=== PATIENT | male | born 1980 | race Caucasian/White ===

== ENCOUNTER 2018-02-13 15:27 | Emergency (ER) | payer OTHER ==
[2018-02-13] MEDS ORDERED: TETANUS & DIPHTHERIA TOX,ADULT 0.5 ML VIAL ONE (16:24)
[2018-02-13] MEDS ORDERED: FLUORESCEIN SODIUM 0.6 MG/WRAP ONE (16:24)
[2018-02-13] MEDS ORDERED: TETRACAINE HCL 0.5% 2ML OPTH ONE (16:24)
--- NOTE | 2018-02-13 17:11 | EDPHYS ---
Physician Documentation [facility] Name: Mahesh Hernandez Age: 37 yrs Sex: Male : 1980 Arrival Date: 02/13/2018 Time: 15:40 Bed 20 Private MD: ED Physician Herb Washington HPI: 02/13 17:00 This 37 yrs old Male presents to ER via Ambulatory with complaints of Foreign pm1 Body Sensation In Left Eye. 17:00 The patient is experiencing foreign body sensation, to the left eye, caused by debris. pm1 Onset: The symptoms/episode began/occurred today. Duration: the symptoms are intermittent. Aggravated by nothing. Alleviated by eye flush. Associated signs and symptoms: Pertinent positives: None. Pertinent negatives: None. Patient wears glasses. Severity of symptoms: in the emergency department the symptoms have improved. The patient has not experienced similar symptoms in the past. The patient has not recently seen a physician. Patient working under his car and some debris fell into his left eye. Patient flushed his eye with water prior to arrival and it improved his symptoms. Patient with history of right eye injury due to chemical splash. Right eye without any pain or sensation of foreign body. Historical: - Allergies: 16:07 Morphine; aj1 16:07 Demerol; aj1 - Home Meds: 16:07 Omeprazole Oral [Active]; aj1 - PMHx: 16:07 GERD; aj1 - PSHx: 16:07 None; aj1 - Immunization history:: Flu vaccine is not up to date. - Social history:: Smoking status: Patient/guardian denies using tobacco. - Ebola Screening: : Patient denies travel to an Ebola-affected area in the 21 days before illness onset. ROS: 17:00 Constitutional: Negative for fever, chills, and weight loss. pm1 17:00 ENT: Negative for injury, pain, and discharge, Neck: Negative for injury, pain, and swelling, Cardiovascular: Negative for chest pain, palpitations, and edema, Respiratory: Negative for shortness of breath, cough, wheezing, and pleuritic chest pain, Abdomen/GI: Negative for abdominal pain, nausea, vomiting, diarrhea, and constipation, Back: Negative for injury and pain, MS/Extremity: Negative for injury and deformity, Skin: Negative for injury, rash, and discoloration, Neuro: Negative for headache, weakness, numbness, tingling, and seizure. 17:00 Eyes: Positive for foreign body sensation, of the left eye, Negative for blurry vision, discharge. Exam: 17:30 Visual Acuity: I have reviewed the nursing documentation. Patient's baseline for right pm1 eye per patient. Left eye at baseline 20/15. 17:30 Constitutional: This is a well developed, well nourished patient who is awake, alert, and in no acute distress. Head/Face: Normocephalic, atraumatic. ENT: Nares patent. No nasal discharge, no septal abnormalities noted. Tympanic membranes are normal and external auditory canals are clear. Oropharynx with no redness, swelling, or masses, exudates, or evidence of obstruction, uvula midline. Mucous membranes moist. Neck: Trachea midline, no thyromegaly or masses palpated, and no cervical lymphadenopathy. Supple, full range of motion without nuchal rigidity, or vertebral point tenderness. No Meningismus. 17:30 Chest/axilla: Normal chest wall appearance and motion. Nontender with no deformity. No lesions are appreciated. Cardiovascular: Regular rate and rhythm with a normal S1 and S2. No gallops, murmurs, or rubs. No pulse deficits. Respiratory: Lungs have equal breath sounds bilaterally, clear to auscultation and percussion. No rales, rhonchi or wheezes noted. No increased work of breathing, no retractions or nasal flaring. Abdomen/GI: Soft, non-tender, with normal bowel sounds. No distension or tympany. No guarding or rebound. No evidence of tenderness throughout. Back: No spinal tenderness. No costovertebral tenderness. Full range of motion. Skin: Warm, dry with normal turgor. Normal color with no rashes, no lesions, and no evidence of cellulitis. MS/ Extremity: Pulses equal, no cyanosis. Neurovascular intact. Full, normal range of motion. 17:30 Eyes: Periorbital structures: appear normal, Pupils: no acute changes, normal size, normal reaction to light, Extraocular movements: intact throughout, Conjunctiva: normal, no chemosis, no excoriation, no exudate, no injection, no subconjunctival hemorrhage no abnormal tearing, Corneas: abrasion, that is small, approximately 1 mm(s), at 3 o'clock, lateral to left iris, foreign body, is not appreciated, a fluorescein strip employed to appreciate the findings, Lids and lashes: appear normal. 17:30 Neuro: Orientation: is normal, Motor: is normal, moves all fours. Vital Signs: 16:07 BP 135 / 99; Pulse 88; Resp 18; Temp 97.5; Pulse Ox 96% on R/A; Weight 138.35 kg (R); aj1 Height 5 ft. 11 in. (180.34 cm) (R); Pain 2/10; 17:32 BP 142 / 94; Pulse 78; Resp 16; Pulse Ox 97% on R/A; em 16:07 Body Mass Index 42.54 (138.35 kg, 180.34 cm) aj1 Visual Acuity: 16:31 Left Eye Visual acuity 20/15, ; Right Eye Visual acuity 20/200, ; Both Eyes Visual em acuity 20/15; With Lenses; pt has hx of tractor battery acid exposure to right eye when younger, pt states vision in right eye is normal MDM: 16:09 Patient medically screened. pm1 17:09 Data reviewed: vital signs. Data interpreted: Pulse oximetry: on room air is 96 %. pm1 Interpretation: normal. Counseling: I had a detailed discussion with the patient and/or guardian regarding: the historical points, exam findings, and any diagnostic results supporting the discharge/admit diagnosis, the need for outpatient follow up, to return to the emergency department if symptoms worsen or persist or if there are any questions or concerns that arise at home. 02/13 16:13 Order name: Visual Acuity; Complete Time: 16:14 pm1 02/13 16:13 Order name: Eye Tray; Complete Time: 16:14 pm1 02/13 16:13 Order name: Fluoresene Opth strip; Complete Time: 16:14 pm1 Administered Medications: 16:30 Drug: Tetracaine Drops 0.5 % 1 drops Route: Ophthalmic; Site: left eye; em 17:07 Follow up: Response: No adverse reaction; Pain is decreased em 16:30 Drug: Tetanus-Diphtheria Toxoid Adult 0.5 ml {Appointment Specialist: [employer]. Exp: em 01/09/2020. Lot #: [id number]. } Route: IM; Site: right deltoid; 17:07 Follow up: Response: No adverse reaction em Disposition: 17:53 Co-signature as Attending Physician, Herb Washington MD. rn Disposition: 02/13/18 17:10 Discharged to Home. Impression: Injury of conjunctiva and corneal abrasion without foreign body, left eye. - Condition is Stable. - Discharge Instructions: Corneal Abrasion. - Prescriptions for Erythromycin 5 mg/gram (0.5 %) Ophthalmic Ointment - apply 1 ribbon by OPHTHALMIC route every 8 hours for 7 days; 1 tube. - Medication Reconciliation Form, Thank You Letter, Antibiotic Education form. - Follow up: Emergency Department; When: As needed; Reason: Worsening of condition. Follow up: Private Physician; When: 2 - 3 days; Reason: Recheck today's complaints, Continuance of care, Re-evaluation by your physician. - Problem is new. - Symptoms have improved. Signatures: Kajal Grant, RN RN aj1 Iraj Lr, CDL TEAM TRUCK DRIVER CDL TEAM TRUCK DRIVER em Herb Washington MD MD rn Marinas, Patrick, PHOTOGRAPHIC REPRODUCTION TECHNICIAN PHOTOGRAPHIC REPRODUCTION TECHNICIAN pm1 Corrections: (The following items were deleted from the chart) 17:32 17:10 02/13/2018 17:10 Discharged to Home. Impression: Injury of conjunctiva and em corneal abrasion without foreign body, left eye. Condition is Stable. Forms are Medication Reconciliation Form, Thank You Letter, Antibiotic Education, Prescription Opioid Use. Follow up: Emergency Department; When: As needed; Reason: Worsening of condition. Follow up: Private Physician; When: 2 - 3 days; Reason: Recheck today's complaints, Continuance of care, Re-evaluation by your physician. Problem is new. Symptoms have improved. pm1
--- NOTE | 2018-02-13 17:11 | ER ---
Nurse's Notes [facility] Name: Mahesh Hernandez Age: 37 yrs Sex: Male : 1980 Arrival Date: 02/13/2018 Time: 15:40 Bed 20 Private MD: Diagnosis: Injury of conjunctiva and corneal abrasion without foreign body, left eye Presentation: 02/13 16:05 Presenting complaint: Patient states: "I was up under my truck and I got something in aj1 my eye, my tried to wash it out, its felt like its moved around a couple times but I can't get rid of it."Reports pain to left eye, sclera is reddened on left eye. Reports that his vision is unchanged to his left eye. Transition of care: patient was not received from another setting of care. Onset of symptoms was February 13, 2018. Risk Assessment: Do you want to hurt yourself or someone else? Patient reports no desire to harm self or others. Initial Sepsis Screen: Does the patient meet any 2 criteria? No. Patient's initial sepsis screen is negative. Does the patient have a suspected source of infection? No. Patient's initial sepsis screen is negative. Care prior to arrival: None. 16:05 Method Of Arrival: Ambulatory aj1 16:05 Acuity: MATT 4 aj1 Triage Assessment: 16:07 General: Appears in no apparent distress. comfortable, Behavior is calm, cooperative, aj1 appropriate for age. Pain: Complains of pain in left eye Pain currently is 2 out of 10 on a pain scale. EENT: Reports irritation to left eye. Neuro: Level of Consciousness is awake, alert, obeys commands. Cardiovascular: Patient's skin is warm and dry. Respiratory: Airway is patent Respiratory effort is even, unlabored, Respiratory pattern is regular, symmetrical. Historical: - Allergies: 16:07 Morphine; aj1 16:07 Demerol; aj1 - Home Meds: 16:07 Omeprazole Oral [Active]; aj1 - PMHx: 16:07 GERD; aj1 - PSHx: 16:07 None; aj1 - Immunization history:: Flu vaccine is not up to date. - Social history:: Smoking status: Patient/guardian denies using tobacco. - Ebola Screening: : Patient denies travel to an Ebola-affected area in the 21 days before illness onset. Screenin:31 Abuse screen: Denies threats or abuse. Nutritional screening: No deficits noted. em Tuberculosis screening: No symptoms or risk factors identified. Fall Risk None identified. Assessment: 16:30 General: Appears in no apparent distress. comfortable, Behavior is calm, cooperative. em Pain: Complains of pain in left eye Pain currently is 2 out of 10 on a pain scale. Neuro: Level of Consciousness is awake, alert, obeys commands, Oriented to person, place, time, situation. Cardiovascular: Capillary refill < 3 seconds Patient's skin is warm and dry. Respiratory: Airway is patent Respiratory effort is even, unlabored, Respiratory pattern is regular, symmetrical. GI: Abdomen is round non-distended. : No signs and/or symptoms were reported regarding the genitourinary system. EENT: Eyes clear. Sclera/Cornea reports something in eye after working under his vehicle. Derm: Skin is intact, Skin is pink, warm \\T\\ dry. Musculoskeletal: Capillary refill < 3 seconds, Range of motion: intact in all extremities. 16:40 Reassessment: I agree with previous assessment. hb Vital Signs: 16:07 BP 135 / 99; Pulse 88; Resp 18; Temp 97.5; Pulse Ox 96% on R/A; Weight 138.35 kg (R); aj1 Height 5 ft. 11 in. (180.34 cm) (R); Pain 2/10; 17:32 BP 142 / 94; Pulse 78; Resp 16; Pulse Ox 97% on R/A; em 16:07 Body Mass Index 42.54 (138.35 kg, 180.34 cm) aj1 Visual Acuity: 16:31 Left Eye Visual acuity 20/15, ; Right Eye Visual acuity 20/200, ; Both Eyes Visual em acuity 20/15; With Lenses; pt has hx of tractor battery acid exposure to right eye when younger, pt states vision in right eye is normal ED Course: 15:40 Patient arrived in ED. as 16:06 Triage completed. aj1 16:07 Arm band placed on Patient placed in an exam room. aj1 16:09 Quinn Castillo NP is PHCP. pm1 16:09 Herb Washington MD is Attending Physician. pm1 16:13 Iraj Lr LVN is Primary Nurse. em 16:30 Patient has correct armband on for positive identification. Bed in low position. Call em light in reach. 16:30 Assist provider with eye exam of left eye. using fluorescein stain, Performed by em Quinn Castillo VARNISHING UNIT TOOL SETTER Patient tolerated well. 16:30 Patient did not have IV access during this emergency room visit. em Administered Medications: 16:30 Drug: Tetracaine Drops 0.5 % 1 drops Route: Ophthalmic; Site: left eye; em 17:07 Follow up: Response: No adverse reaction; Pain is decreased em 16:30 Drug: Tetanus-Diphtheria Toxoid Adult 0.5 ml {Re Recording Mixer: [employer]. Exp: em 01/09/2020. Lot #: [id number]. } Route: IM; Site: right deltoid; 17:07 Follow up: Response: No adverse reaction em Outcome: 17:10 Discharge ordered by MD. pm1 17:29 Discharged to home ambulatory. em 17:29 Condition: good em 17:29 Discharge instructions given to patient, Instructed on discharge instructions, follow up and referral plans. medication usage, Demonstrated understanding of instructions, follow-up care, medications, Prescriptions given X 1. 17:32 Patient left the ED. em Signatures: Kajal Grant, RN RN aj1 Iraj Lr, SHIP OFFICER SHIP OFFICER em Orquidea Bourne as Quinn Castillo, ALLAN VARNISHING UNIT TOOL SETTER pm1 Stephany Ruiz RN RN
== END 2018-02-13 17:32 | disposition home or self-care (01) ==
LOC: ER 15:27
DX: S05.02XA Injury of conjunctiva and corneal abrasion without foreign body, left eye, initial encounter (principal); X58.XXXA Exposure to other specified factors, initial encounter; Y93.89 Activity, other specified; Y92.9 Unspecified place or not applicable; Z23 Encounter for immunization; Z88.5 Allergy status to narcotic agent; K21.9 Gastro-esophageal reflux disease without esophagitis
CPT/HCPCS: 90714; 99283